=== PATIENT | female | born 1980 | race Caucasian/White ===

== ENCOUNTER 2017-10-22 17:05 | Emergency (ER) | payer OTHER ==
[~2017-10-22] VITALS: Ht 167.6 cm; Wt 68.0 kg
[2017-10-22 17:59] LABS: ABSOLUTE BASOPHIL COUNT 0.1 /CUMM (0.0-0.2); ABSOLUTE EOSINOPHIL COUNT 0.1 /CUMM (0.0-0.7); ABSOLUTE GRANULOCYTE CT 6.8 /CUMM (1.4-6.5); ABSOLUTE LYMPH COUNT 2.6 /CUMM (1.2-3.4); ABSOLUTE MONOCYTE COUNT 0.4 /CUMM (0.10-0.60); BASOPHIL % 0.7 % (0.0-2.0); EOSINOPHIL % 1.4 % (0-5); HEMATOCRIT 40.3 % (37-47); MEAN CORPUSCULAR HGB 29.1 PG (27.0-31.0); MEAN CORPUSCULAR HGB CONC 33.7 G/DL (33.0-37.0); MEAN CORPUSCULAR VOLUME 86.3 FL (81.0-99.0); MEAN PLATELET VOLUME 8.7 FL (7.4-10.4); PLATELET COUNT 259 /CUMM (130-400); RBC DISTRIBUTION WIDTH 14.2 % (11.5-14.5); RED BLOOD CELL CT 4.67 /CUMM (4.20-5.40)
--- NOTE | 2017-10-22 18:59 | ED GI/GU/ABDOMINAL COMPLAINT ---
History of Present Illness General Chief Complaint: Abdominal Pain/Flank Pain Stated Complaint: LRQ PAIN HX OF CYSTS "POSSIBLE HERNIA"? Source: patient Exam Limitations: no limitations Vital Signs & Intake/Output Vital Signs & Intake/Output Vital Signs Date Time Temp Pulse Resp B/P B/P Pulse O2 O2 Flow FiO2 Mean Ox Delivery Rate 10/22 1941 57 18 121/81 98 Room Air 10/22 1906 Room Air 10/22 1728 99.2 73 18 135/84 97 Room Air ED Intake and Output 10/23 0000 10/22 1200 Intake Total Output Total Balance Patient 150 lb Weight Weight Reported by Patient Measurement Method Allergies Coded Allergies: NO KNOWN ALLERGIES (11/18/11) Reconcile Medications Cyclobenzaprine HCl 5 MG TABLET 1 TAB PO TIDPRN PRN muscle strain Meloxicam (Mobic) 15 MG TABLET 1 TAB PO DAILY PRN pain Triage Note: PT FROM HOME C/O RIGHT SIDED ABD PAIN/LOWER PEVLIC SINCE September. PT STATES SHE HAS HX RIGHT OVARIAN REMOVED, APPENDECTOMY, AND HERNIA ON RIGHT SIDE. PT STATES SHE WORKS AT HOME [employer] L[employer]ING SO PT FEELS POSSIBLE HERNIA?, VSS. Triage Nurses Notes Reviewed? yes ? n Is pt currently ? No Onset: Gradual Duration: week(s): Timing: recent history Quality/Severity: moderate, sharpness Severity Numbers: 7 Location: groin HPI: 37yo female with hx of right ovarian torsion s/p right oophrectomy presents to ED complaining of right lower abdominal/groin pain beginning yesterday. Patient reports mild pain in RLQ x 4 weeks since her LMP however increasing pain yesterday. Pain worse with lifting and squating, sharp, 7/10. Patient tried advil last night which helped slightly. PAtient reports irregular menses recently. 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 The patient denies fevers, chills, vomiting, diarrhea, dysuria. (Kayli TAYLOR,Merna Mendoza) Past History Travel History Traveled to [place] past 21 day No Medical History Any Pertinent Medical History? 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 No (Merna Branham) Review of Systems Review of Systems Constitutional: Reports: no symptoms. EENTM: Reports: no symptoms. Respiratory: Reports: no symptoms. Cardiovascular: Reports: no symptoms. GI: Reports: see HPI. Genitourinary: Reports: no symptoms. Musculoskeletal: Reports: no symptoms. Skin: Reports: no symptoms. Neurological/Psychological: Reports: no symptoms. Hematologic/Endocrine: Reports: no symptoms. Immunologic/Allergic: Reports: no symptoms. All Other Systems: Reviewed and Negative (Merna Branham) Physical Exam Physical Exam General Appearance: well developed/nourished, no apparent distress, alert, awake Head: atraumatic, normal appearance Eyes: Bilateral: normal appearance. Ears, Nose, Throat, Mouth: hearing grossly normal Neck: normal inspection, supple, full range of motion Respiratory: normal breath sounds, no respiratory distress, lungs clear Cardiovascular: regular rate/rhythm Gastrointestinal: normal bowel sounds, soft, no organomegaly, right groin tenderness without mass or lesion, pain increases with active hip flexion Back: normal inspection, normal range of motion Extremities: normal range of motion Neurologic/Psych: awake, alert, oriented x 3 Skin: intact, normal color, warm/dry Core Measures ACS in differential dx? No Sepsis Present: No Sepsis Focused Exam Completed? No (Merna Branham) Progress Differential Diagnosis: bowel obstruction, hernia, ovarian cyst, UTI/pyelo, groin strain Plan of Care: Orders Procedure Date/time Status Add-on Test (ER Only) 10/22 1813 Active HUMAN BETA HCG SCREEN 10/22 175 Complete URINE 10/22 173 Complete URINALYSIS 10/22 173 Complete LIPASE 10/22 173 Complete COMPREHENSIVE METABOLIC PANEL 10/22 173 Complete CBC WITHOUT DIFFERENTIAL 10/22 1730 Complete Laboratory Tests 10/22/171814: Urine Color YEL, Urine Clarity CLEAR, Urine pH 6.0, Ur Specific [place] 1.020, Urine Protein NEG, Urine Ketones NEG, Urine Nitrite NEG, Urine Bilirubin NEG, Urine Urobilinogen 0.2, Ur Leukocyte Esterase NEG, Ur Microscopic EXAM NOT REQUIRED, Urine Hemoglobin NEG, Urine Glucose NEG, Urine Test NEGATIVE 10/22/171811: Total Beta HCG Cancelled 10/22/17 1750: Anion Gap 11, Estimated GFR > 60, BUN/Creatinine Ratio 18.8, Glucose 95, Calcium 9.5, Total Bilirubin 0.2, AST 18, ALT 21, Alkaline Phosphatase 41, Total Protein 6.5, Albumin 4.0, Globulin 2.5, Albumin/Globulin Ratio 1.6, Lipase 85, Total Beta HCG NEGATIVE, CBC w Diff NO MAN DIFF REQ, RBC 4.67, MCV 86.3, MCH 29.1, MCHC 33.7, RDW 14.2, MPV 8.7, Gran % 68.0, Lymphocytes % 25.7, Monocytes % 4.2, Eosinophils % 1.4, Basophils % 0.7, Absolute Granulocytes 6.8 H, Absolute Lymphocytes 2.6, Absolute Monocytes 0.4, Absolute Eosinophils 0.1, Absolute Basophils 0.1 CT scan shows no evidence for hernia. No acute abnormalities detected on CT scan. Patient's labs are within normal limits. Patient's groin pain is reproducible on physical exam, worse with hip flexion. Symptoms are likely related to groin strain. Patient educated on RICE therapy. Patient to begin meloxicam and muscle relaxant. She will follow-up with her primary care doctor for possible physical therapy if needed. Patient is able to ambulate without difficulty here in the emergency department. The patient agrees with the plan of care. Diagnostic Imaging: Viewed by Me: CT Scan. Discussed w/RAD: CT Scan. Radiology Impression: PATIENT: SANDRA ONEIL PRESENT AGE: 37 PATIENT ACCOUNT NO: [id number] : 81 LOCATION: [facility] ORDERING PHYSICIAN: Abel TAYLOR SERVICE DATE: 10/22/17 EXAM TYPE: CAT - CT ABD & PELVIS W IV CONTRAST EXAMINATION: CT ABDOMEN AND PELVIS WITH CONTRAST CLINICAL INFORMATION: Right lower quadrant abdominal pain. History of hernia. COMPARISON: No relevant prior imaging. TECHNIQUE: Multidetector volumetric imaging was performed of the abdomen and pelvis following IV administration of 95 mL of Optiray 320 intravenous contrast. Sagittal and coronal reformatted images were obtained on the technologist's workstation. DLP: 499.11 mGy-cm FINDINGS: LUNG BASES: Lung bases are clear. There is no pleural or pericardial effusion. LIVER, GALLBLADDER, AND BILIARY TREE: Liver attenuation is homogeneous and there is no evidence of a discrete hepatic parenchymal mass. Grossly no intrahepatic or extrahepatic biliary ductal dilatation. The gallbladder is unremarkable with no evidence of radiopaque gallstones, gallbladder wall thickening, or obvious pericholecystic inflammatory changes. PANCREAS: Unremarkable. SPLEEN: Unremarkable. ADRENAL GLANDS: Unremarkable. KIDNEYS AND URETERS: Kidneys demonstrate symmetric nephrographic enhancement characteristics. There is no discrete renal parenchymal mass. No abnormal perinephric inflation or collection. There is no abnormal mass or calcification is visualized along the expected course of the right or left ureter. BLADDER: Unremarkable. GASTROINTESTINAL TRACT: The stomach and small bowel are unremarkable. No evidence to suggest obstruction. Colon is normal. No abnormal perirectal or presacral inflammation. No free intraperitoneal air or fluid. ABDOMINAL WALL: No significant hernia is appreciated. LYMPH NODES: No pathologically enlarged mesenteric or retroperitoneal lymph nodes. VASCULAR: The abdominal aorta and inferior vena cava are unremarkable. PELVIC VISCERA: There is an anteverted uterus. No worrisome adnexal mass. OSSEOUS STRUCTURES: There is no acute osseous finding. No abnormal lytic or blastic osseous lesion. IMPRESSION: Normal CT scan of the abdomen and pelvis. No abnormal finding to provide a definitive explanation for this patient's abdominal pain. DICTATED BY: Augie Lin MD DATE/TIME DICTATED:10/22/171932 DRESS CAP MAKER: RADHA DATE/TIME TRANSCRIBED:10/22/171932 CONFIDENTIAL, DO NOT COPY WITHOUT APPROPRIATE AUTHORIZATION. <Electronically signed in Other Vendor System> SIGNED BY: Augie Lin MD 10/22/171940 Initial ED EKG: none (Kayli TAYLOR,Merna Mendoza) Departure Departure Disposition: HOME OR SELF CARE Condition: Stable Clinical Impression Primary Impression: Strain of muscle of right groin region Referrals: Philipp Geller MD (PCP/Family) Additional Instructions: Take meloxicam once a day for anti-inflammatory and pain relief. Also take cyclobenzaprine for muscle relaxant. Apply ice and try groin stretches. Rest, avoid heavy lifting. Follow-up with your primary care doctor, they can order physical therapy if they believe that that is necessary. Return with worsening symptoms or concerns. Please note that there might be incidental findings in your evaluation that are unrelated to the current emergency department visit. Please notify your primary care doctor about this emergency department visit in order to obtain and review all of the testing performed so that these incidental findings can be monitored as needed. If you had an x-ray performed, please understand that some fractures may not be seen on the initial set of x-rays. If your symptoms persist you might need a repeat set of x-rays to check for such a fracture. If you had a laceration evaluated, please understand that foreign bodies such as glass or wood may not be visible to the naked eye or on plain x-rays. If the wound becomes red, swollen, increasingly more painful or if there is any drainage from the wound, please have it reevaluated by a physician for the possibility of a retained foreign body. If you're unable to follow up as outlined in the discharge instructions please return to the emergency department. Thank you for choosing the [facility] Emergency Department for your care. It was a pleasure to serve you today. Departure Forms: Customer Survey General Discharge Information Prescriptions: Current Visit Scripts Meloxicam (Mobic) 1 TAB PO DAILY PRN pain #30 TAB Cyclobenzaprine HCl 1 TAB PO TIDPRN PRN muscle strain #20 TAB (Kayli TAYLOR,Merna Mendoza) PA/MANAGER CHINESE Co-Sign Statement Statement: ED Attending supervision documentation- I saw and evaluated the patient. I have also reviewed all the pertinent lab results and diagnostic results. I agree with the findings and the plan of care as documented in the PA's/MANAGER CHINESE's documentation. x I have reviewed the ED Record and agree with the PA's/MANAGER CHINESE's documentation. [] Additions or exceptions (if any) to the PAs/MANAGER CHINESE's note and plan are summarized below: [] (Patricio MOSS,Renny)
[2017-10-22 19:41] VITALS: BP 121/81
--- NOTE | 2017-10-22 19:41 | CT SCAN REPORT ---
EXAMINATION: CT ABDOMEN AND PELVIS WITH CONTRAST CLINICAL INFORMATION: Right lower quadrant abdominal pain. History of hernia. COMPARISON: No relevant prior imaging. TECHNIQUE: Multidetector volumetric imaging was performed of the abdomen and pelvis following IV administration of 95 mL of Optiray 320 intravenous contrast. Sagittal and coronal reformatted images were obtained on the technologist's workstation. DLP: 499.11 mGy-cm FINDINGS: LUNG BASES: Lung bases are clear. There is no pleural or pericardial effusion. LIVER, GALLBLADDER, AND BILIARY TREE: Liver attenuation is homogeneous and there is no evidence of a discrete hepatic parenchymal mass. Grossly no intrahepatic or extrahepatic biliary ductal dilatation. The gallbladder is unremarkable with no evidence of radiopaque gallstones, gallbladder wall thickening, or obvious pericholecystic inflammatory changes. PANCREAS: Unremarkable. SPLEEN: Unremarkable. ADRENAL GLANDS: Unremarkable. KIDNEYS AND URETERS: Kidneys demonstrate symmetric nephrographic enhancement characteristics. There is no discrete renal parenchymal mass. No abnormal perinephric inflation or collection. There is no abnormal mass or calcification is visualized along the expected course of the right or left ureter. BLADDER: Unremarkable. GASTROINTESTINAL TRACT: The stomach and small bowel are unremarkable. No evidence to suggest obstruction. Colon is normal. No abnormal perirectal or presacral inflammation. No free intraperitoneal air or fluid. ABDOMINAL WALL: No significant hernia is appreciated. LYMPH NODES: No pathologically enlarged mesenteric or retroperitoneal lymph nodes. VASCULAR: The abdominal aorta and inferior vena cava are unremarkable. PELVIC VISCERA: There is an anteverted uterus. No worrisome adnexal mass. OSSEOUS STRUCTURES: There is no acute osseous finding. No abnormal lytic or blastic osseous lesion. IMPRESSION: Normal CT scan of the abdomen and pelvis. No abnormal finding to provide a definitive explanation for this patient's abdominal pain.
[2017-10-22] MEDS ORDERED: MOBIC15 M1 PO (20:15)
[2017-10-22] MEDS ORDERED: CYCLOBENZAPRINE5 M2 PO (20:15)
== END 2017-10-22 20:34 ==
LOC: ERH 17:05
PROVIDERS: Physician Assistant Medical
DX: S39.011A Strain of muscle, fascia and tendon of abdomen, initial encounter (principal); R10.31 Right lower quadrant pain
CPT/HCPCS: 74177; 81003; 81025